=== PATIENT | female | born 1995 | race Caucasian/White ===

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

== ENCOUNTER 2017-06-23 07:14 | Emergency (ER) | payer OTHER ==
[~2017-06-23] VITALS: Ht 162.6 cm; Wt 106.6 kg
[2017-06-23 07:19] VITALS: Ht 162.6 cm; Wt 106.6 kg
[2017-06-23 08:17] VITALS: BP 131/69
== END 2017-06-23 08:17 | disposition home or self-care (01) ==
LOC: ED 07:14
DX: J03.90 Acute tonsillitis, unspecified (principal); E66.9 Obesity, unspecified
CPT/HCPCS: J0696; J1100

== ENCOUNTER 2017-07-22 20:53 | Emergency (ER) | payer OTHER ==
[~2017-07-22] VITALS: Ht 162.6 cm; Wt 92.1 kg
[2017-07-22 21:09] VITALS: Ht 162.6 cm; Wt 92.1 kg
[2017-07-22 23:46] VITALS: BP 130/77
== END 2017-07-22 23:46 | disposition home or self-care (01) ==
LOC: ED 20:53
DX: S61.102A Unspecified open wound of left thumb with damage to nail, initial encounter (principal); W05.1XXA Fall from non-moving nonmotorized scooter, initial encounter; Y93.89 Activity, other specified; Y92.89 Other specified places as the place of occurrence of the external cause; Y99.8 Other external cause status
CPT/HCPCS: 90715; J1885; J2001

== ENCOUNTER 2018-09-26 15:49 | Emergency (ER) | payer OTHER ==
[~2018-09-26] VITALS: Ht 162.6 cm; Wt 92.5 kg
[2018-09-26 15:51] VITALS: BP 135/77; Ht 162.6 cm; Wt 92.5 kg
== END 2018-09-26 18:34 | disposition home or self-care (01) ==
LOC: ED 15:49
DX: S61.012A Laceration without foreign body of left thumb without damage to nail, initial encounter (principal); W45.8XXA Other foreign body or object entering through skin, initial encounter; Y93.89 Activity, other specified; Y92.89 Other specified places as the place of occurrence of the external cause; Y99.0 Civilian activity done for income or pay
CPT/HCPCS: J2001